=== PATIENT | female | born 2000 | race American Indian/Alaskan Native ===

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

== ENCOUNTER 2020-03-04 14:11 | Outpatient (CLI) | payer MEDICAID ==
[2020-03-04] MEDS ORDERED: LACTATED RINGERS 500 ML IV ONE (15:08)
[2020-03-04 16:09] LABS: Bacteria,Urine 1+ /HPF (Negative); Bilirubin,Urine NEG (Negative); Blood,Urine NEG (Negative); Color,Urine Amber (Yellow); Mucus,Urine 3+ /HPF
[2020-03-04 16:17] VITALS: BP 120/65
== END 2020-03-04 16:48 | disposition home or self-care (01) ==
LOC: TRG 14:11 → APU 14:12 → TRG 16:48
PROVIDERS: ATTEND Obstetrics & Gynecology
DX: O47.03 False labor before 37 completed weeks of gestation, third trimester (principal); Z3A.35 35 weeks gestation of pregnancy
CPT/HCPCS: 59025; 81001; 87086

== ENCOUNTER 2020-03-10 02:14 | Outpatient (CLI) | payer MEDICAID ==
[2020-03-10 02:36] VITALS: BP 122/70
== END 2020-03-10 03:13 | disposition home or self-care (01) ==
LOC: TRG 02:14 → APU 02:15 → TRG 03:13
PROVIDERS: ATTEND Obstetrics & Gynecology
DX: O26.893 Other specified pregnancy related conditions, third trimester (principal); M54.5 Low back pain; R10.9 Unspecified abdominal pain; Z3A.36 36 weeks gestation of pregnancy
CPT/HCPCS: 59025

== ENCOUNTER 2020-03-31 08:14 | Inpatient (IN) | payer MEDICAID ==
[2020-03-31] MEDS ORDERED: ONDANSETRON 4 MG/2 ML INJ IV PRN ×2 (08:38→18:46)
[2020-03-31] MEDS ORDERED: LIDOCAINE (2%) 20 MG/1 ML VIAL 20 ML MDV INFILTRATI ONE (08:38)
[2020-03-31] MEDS ORDERED: fentaNYL 100 MCG/2 ML INJ IV PRN (08:38)
[2020-03-31] MEDS ORDERED: NALOXONE 0.4 MG/1 ML INJ IV PRN (08:38)
[2020-03-31] MEDS ORDERED: miSOPROStol 200 MCG TAB PR PRN (08:38)
[2020-03-31] MEDS ORDERED: BUTORPHANOL 2 MG/1 ML INJ IV PRN (08:38)
[2020-03-31] MEDS ORDERED: ePHEDrine SULFATE 50 MG/1 ML INJ IV PRN (08:38)
[2020-03-31] MEDS ORDERED: TERBUTALINE 1 MG/1 ML INJ SUB-Q PRN (08:38)
[2020-03-31] MEDS ORDERED: METHYLERGONOVINE MALEATE 0.2 MG/ML VIAL IM PRN (08:38)
[2020-03-31] MEDS ORDERED: LACTATED RINGERS 1,000 ML IV SCH (08:45)
[2020-03-31] MEDS ORDERED: OXYTOCIN DRIP 30 UNITS/500 ML BAG IV SCH (09:00)
[2020-03-31 09:55] LABS: Hemoglobin 10.5 gm/dl (10.1-14.3)
[2020-03-31 10:21] LABS: Hematocrit 32.5 % (30.3-42.9); Mean Corpuscular HGB Conc 32 % (30-34); Mean Corpuscular Volume 80 fl (79-97); Platelet Count 266 K/mm3 (140-440); Red Blood Count 4.05 M/mm3 (3.65-5.03); Red Cell Distribution Width 15.5 % (13.2-15.2)
[2020-03-31] MEDS: OXYTOCIN DRIP 30 UNITS/500 ML BAG IV SCH ×6 (11:19→14:14)
--- NOTE | 2020-03-31 15:49 | History and Physical Report ---
History of Present Illness Date of examination: 03/31/20 Date of admission: 03/31/20 08:14 Chief complaint: induction of labor History of present illness: Pt is a 19 year old -[place] female MANA 04/03/20 at 39w4d presents for scheduled induction of labor for morbid obesity. She reports irregular contractions and denies vaginal bleeding or leakage of fluid. She has had care at [facility] since 18 wks complicated by morbid obesity, pyelonephritis, and h/o precipitous labor with home . She is GBS negative. Past History Past Medical History: no pertinent history Past Surgical History: no surgical history Social history: no significant social history - Obstetrical History Expected Date of Delivery: 04/03/20 Actual Gestation: 39 Week(s) 4 Day(s) : 3 Para: 2 Hx # Term Pregnancies: 1 Number of Pregnancies: 1 Spontaneous Abortions: 0 Induced : 0 Number of Living Children: 2 Medications and Allergies Allergies Allergy/AdvReac Type Severity Reaction Status Date / Time No Known Allergies Allergy Verified 03/31/20 09:09 Home Medications Medication Instructions Recorded Confirmed Last Taken Type Vit-Fe Fumar-FA [ 1 tab PO QDAY 03/31/20 03/31/20 03/31/20 History Vitamin] Active Meds: Active Medications Butorphanol Tartrate (Stadol) 2 mg IV Q2H PRN PRN Reason: Pain , Severe (7-10) Ephedrine Sulfate (Ephedrine Sulfate) 10 mg IV Q2M PRN PRN Reason: Hypotension Fentanyl (Sublimaze) 100 mcg IV Q2H PRN PRN Reason: Pain,Severe (7-10) LABOR PAIN Last Admin: 03/31/20 15:29 Dose: 100 mcg Documented by: Oxytocin/Sodium Chloride (Pitocin/Ns 30 Unit/500ml) 30 units in 500 mls @ 2 mls/hr IV TITR DAR; Protocol Last Admin: 03/31/20 14:14 Dose: 12 ml/hr, 12 mls/hr Documented by: Lactated Ringer's (Lactated Ringers) 1,000 mls @ 125 mls/hr IV DIRECT DAR Last Admin: 03/31/20 11:18 Dose: 125 mls/hr Documented by: Oxytocin/Sodium Chloride (Pitocin/Ns 30 Unit/500ml) 30 units in 500 mls @ 40 mls/hr IV TITR DAR; Protocol Stop: 03/31/20 21:29 Methylergonovine Maleate (Methergine) 0.2 mg IM ONCE PRN PRN Reason: Uterine Bleeding Mineral Oil (Mineral Oil) 30 ml PO QHS PRN PRN Reason: Constipation Misoprostol (Cytotec) 800 mcg LA ONCE PRN PRN Reason: Uterine Bleeding Naloxone HCl (Naloxone) 0.1 mg IV Q2MIN PRN PRN Reason: Res Rate </= 8 or 02 SAT < 92% Ondansetron HCl (Zofran) 4 mg IV Q8H PRN PRN Reason: Nausea And Vomiting Terbutaline Sulfate (Brethine) 0.25 mg SUB-Q ONCE PRN PRN Reason: Hyperstimulation/Hypertonicity Review of Systems All systems: negative - Vital Signs Vital signs: Vital Signs Pulse BP 100 H 136/86 03/31/20 08:55 03/31/20 08:55 Temp Pulse Resp BP Pulse Ox 99.1 F 116 H 16 149/76 98 03/31/20 08:59 03/31/20 15:41 03/31/20 08:59 03/31/20 15:28 03/31/20 15:41 - Physical Exam Breasts: Positive: deferred Abdomen: Positive: soft (gravid, obese ) Genitourinary (Female): Positive: normal external genitalia Uterus: Positive: enlarged (gravid ) Extremities: Positive: normal - Obstetrical FHR: auscultation normal Uterine Contraction Monitor Mode: External Cervical Dilatation: 10 Cervical Effacement Percentage: 100 station: +3 Uterine Contraction Pattern: Regular Uterine Tone Measurement Phase: Resting Uterine Contraction Intensity: Strong/Firm Results Result Diagrams: 03/31/20 09:20 Abnormal lab results 03/31/20 Range/Units 09: WBC 12.1 H (4.5-11.0) K/mm3 MCH 26 L (28-32) pg RDW 15.5 H (13.2-15.2) % All other labs normal. Assessment and Plan A: IUP at 39w4d Morbid Obesity GBS Negative H/o Precipitous P: Admit to labor and delivery Routine intrapartum care Closely monitor maternal and status
--- NOTE | 2020-03-31 15:52 | Procedure Note ---
OB Delivery Note - Delivery Date of Delivery: 03/31/20 Surgeon: SAMAN CHAVEZ Estimated blood loss: 500cc - Vaginal Delivery presentation: vertex Delivery position: OA Intrapartum events: precipitous labor- <3hr Delivery induction: oxytocin Delivery augmentation: pitocin Delivery monitor: external FHT, external uterine Route of delivery: Delivery placenta: spontaneous Episiotomy: none Delivery laceration: other (Midline periurethral- hemostatic without repair ) Anesthesia: none - Infant A at 1 minute: 8 at 5 minutes: 9 Gender: Female (2840g (6lb 4.1 oz) @ 1509 pm)
[2020-03-31] MEDS ORDERED: IBUPROFEN 600 MG TAB PO ONE ×2 (17:35→17:58)
[2020-03-31] MEDS ORDERED: diphenhydrAMINE 25 MG CAP PO PRN (18:46)
[2020-03-31] MEDS ORDERED: LANOLIN/ZINC/DIMETHICONE (LANSINOH) 7 GM TP PRN ×2 (18:46)
[2020-03-31] MEDS ORDERED: BENZOCAINE/MENTHOL 20/0.5% TOP SPRAY 56 GM TP PRN (18:46)
[2020-03-31] MEDS ORDERED: WITCH HAZEL/ GLYCERIN PAD TP PRN (18:46)
[2020-03-31] MEDS ORDERED: MAGNESIUM HYDROXIDE (MOM) ORAL LIQD UDC PO PRN (18:46)
[2020-03-31] MEDS ORDERED: PROMETHAZINE 25 MG TAB PO PRN (18:46)
[2020-03-31] MEDS ORDERED: HYDROcodone/ACETAMINOPHEN 5-325 MG TAB PO PRN (18:46)
[2020-03-31] MEDS ORDERED: PROMETHAZINE 25 MG RECT SUPP PR PRN (18:46)
[2020-03-31] MEDS ORDERED: MINERAL OIL 30 ML ORAL LIQD PO PRN (22:00)
[2020-03-31] MEDS: IBUPROFEN 600 MG TAB PO SCH (23:27)
[2020-03-31] MEDS: FERROUS SULFATE 325 MG TAB PO SCH (23:28)
[2020-04-01] MEDS: IBUPROFEN 600 MG TAB PO SCH (05:38)
[2020-04-01] MEDS ORDERED: DIPHtheria,PERTUSSIS(ACELL),TETANUS VACCINE/PF 0.5 ML VIAL IM ONE (06:00)
--- NOTE | 2020-04-01 08:17 | Progress Note ---
Assessment and Plan A: PPD1 s/p at term. M.O. P: Routine care with discharge anticipated at 24hrs . Subjective - Subjective Date of service: 04/01/20 Principal diagnosis: S/P at term, morbid obesity Interval history: PPD1 S/P at term. Pain well controlled. Patient resting and has no complaints at this time. Patient reports: appetite normal, voiding normally, pain well controlled, ambulating normally : doing well Objective - Vital Signs Latest vital signs: Vital Signs Temp Pulse Resp BP BP Pulse Ox 04/01/20 00:28 98.2 F 97 H 20 104/55 99 03/31/20 20:01 99.0 F 108 H 20 94/66 99 03/31/20 18:25 99.1 F 111 H 20 122/56 100 03/31/20 17:40 86 100 03/31/20 17:35 97 H 99 03/31/20 17:30 95 H 99 03/31/20 17:25 92 H 99 03/31/20 17:20 84 100 03/31/20 17:18 89 100 03/31/20 17:16 101 H 168/115 03/31/20 17:13 101 H 100 03/31/20 17:08 86 100 03/31/20 17:03 92 H 100 03/31/20 17:00 85 157/90 03/31/20 16:58 106 H 99 03/31/20 16:53 94 H 99 03/31/20 16:48 97 H 100 03/31/20 16:45 88 18 146/78 146/78 03/31/20 16:43 91 H 100 03/31/20 16:38 90 100 03/31/20 16:33 98 H 100 03/31/20 16:30 83 18 141/84 141/84 100 03/31/20 16:28 93 H 100 03/31/20 16:23 96 H 100 03/31/20 16:18 94 H 100 03/31/20 16:15 97 H 16 134/65 134/65 100 03/31/20 16:13 93 H 100 03/31/20 16:08 102 H 99 03/31/20 16:07 78 L 03/31/20 16:00 98.3 F 110 H 18 135/65 135/65 03/31/20 15:41 116 H 98 03/31/20 15:36 114 H 99 03/31/20 15:31 107 H 100 03/31/20 15:28 103 H 149/76 03/31/20 15:26 103 H 154/92 100 03/31/20 15:20 92 H 99 03/31/20 15:16 98 H 145/91 03/31/20 15:15 96 H 98 03/31/20 14:14 85 117/60 03/31/20 13:37 88 125/59 03/31/20 13:06 90 121/74 03/31/20 12:31 89 111/69 03/31/20 11:57 84 120/65 03/31/20 11:19 93 H 122/72 03/31/20 10:56 104 H 98 03/31/20 10:51 96 H 99 03/31/20 10:46 84 100 03/31/20 10:41 86 100 03/31/20 10:36 91 H 99 03/31/20 10:31 83 99 03/31/20 10:26 91 H 98 03/31/20 10:21 87 99 03/31/20 10:16 80 99 03/31/20 10:11 79 99 03/31/20 10:06 90 100 03/31/20 10:01 94 H 99 03/31/20 09:56 81 100 03/31/20 09:51 109 H 99 03/31/20 09:46 84 99 03/31/20 09:41 91 H 100 03/31/20 09:36 81 100 03/31/20 09:31 84 100 03/31/20 09:26 91 H 100 03/31/20 09:21 95 H 100 03/31/20 09:16 94 H 100 03/31/20 09:11 107 H 99 03/31/20 09:06 100 H 99 03/31/20 09:01 108 H 99 03/31/20 08:59 99.1 F 103 H 16 136/86 100 03/31/20 08:56 118 H 100 03/31/20 08:55 100 H 136/86 Intake and Output 03/31/20 04/01/20 04/01/20 23:59 07:59 15:59 Intake Total 400 200 Output Total 600 400 Balance -200 -200 Intake: Oral 400 200 Output: Urine 600 400 Void 600 400 Other: Total, Intake Amount 200 200 Total, Output Amount 600 400 Estimated Blood Loss 500 - Exam Breasts: Present: deferred Uterus: Present: normal, fundal height below umbilicus - Labs Labs: Abnormal lab results 03/31/20 Range/Units 09:20 WBC 12.1 H (4.5-11.0) K/mm3 MCH 26 L (28-32) pg RDW 15.5 H (13.2-15.2) %
--- NOTE | 2020-04-01 08:21 | Discharge Summary ---
Providers - Providers Date of Admission: 03/31/20 08:14 Date of discharge: 04/01/20 Attending physician: SAMAN CHAVEZ 03/31/20 18:46 Consult to Clock Maker [CONS] Routine Reason For Exam: assistance with , SNS Primary care physician: LILO ZAMORA Hospitalization Reason for admission: induction of labor Delivery: Episiotomy: none Laceration: other (Midline, periurethral (hemostatic w/o repair)) Other procedures: none complications: none Discharge diagnosis: IUP at term delivered baby: female Condition at discharge: Good Disposition: DC-01 TO HOME OR SELFCARE Plan - Discharge Medications Prescriptions: Ibuprofen [Motrin] 800 mg PO Q8HR PRN #30 tablet PRN Reason: Pain, Moderate (4-6) - Provider Discharge Summary Activity: no sex for 6 weeks, no heavy lifting 4 weeks, no strenuous exercise Diet: routine Instructions: routine Additional instructions: [] Smoking cessation referral if applicable(refer to patient education folder for contact #) [] Refer to [facility] Booklet Call your doctor immediately for: * Fever > 100.5 * Heavy vaginal bleeding ( >1 pad per hour) * Severe persistent headache * Shortness of breath * Reddened, hot, painful area to leg or breast * Drainage or odor from incision. * Keep incision clean and dry at all times and follow doctor's instructions regarding bathing/showering - Follow up plan Follow up: LILO ZAMORA MD [Primary Care Provider] - 05/12/20
[2020-04-01] MEDS: FERROUS SULFATE 325 MG TAB PO SCH (11:24)
[2020-04-01] MEDS ORDERED: MEASLES, MUMPS & RUBELLA 12,500 UNIT/0.5 ML VACCINE SUB-Q ONE (15:53)
[2020-04-01 17:15] VITALS: BP 115/63
== END 2020-04-01 18:24 | disposition home or self-care (01) | DRG 775 ==
LOC: LD 08:14 → OB 18:43
PROVIDERS: ADMIT Obstetrics & Gynecology; ATTEND Obstetrics & Gynecology
PROC: 10E0XZZ Delivery of Products of Conception, External Approach (ICD-10-PCS; principal; 2020-03-31)
PROC: 3E033VJ Introduction of Other Hormone into Peripheral Vein, Percutaneous Approach (ICD-10-PCS; 2020-03-31)
PROC: 3E0234Z Introduction of Serum, Toxoid and Vaccine into Muscle, Percutaneous Approach (ICD-10-PCS; 2020-04-01)
DX: O62.3 Precipitate labor (principal); Z3A.39 39 weeks gestation of pregnancy; Z37.0 Single live birth; O99.214 Obesity complicating childbirth; E66.01 Morbid (severe) obesity due to excess calories; O71.82 Other specified trauma to perineum and vulva; Z20.828 Contact with and (suspected) exposure to other viral communicable diseases; Z23 Encounter for immunization
CPT/HCPCS: 36415; 85027; 86592; 86850; 86900; 86901; G0378; J2590; J3010; J7120; U0003

== ENCOUNTER 2020-09-02 07:30 | Emergency (ER) | payer MEDICAID ==
--- NOTE | 2020-09-02 07:44 | Event Note ---
ED Screening Note Date of service: 09/02/20 Time: 07:42 ED Screening Note: Patient presents with complaints of chest pain, anxiety, and depression Denies shortness of breath Patient is 1 week states she does not have enough support at home Denies history of anxiety or depression as a child per patient Patient actively crying in triage This initial assessment/diagnostic orders/clinical plan/treatment(s) is/are subject to change based on patients health status, clinical progression and re- assessment by fellow clinical providers in the ED. Further treatment and workup at subsequent clinical providers discretion. Patient/guardian urged not to elope from the ED as their condition may be serious if not clinically assessed and managed. Initial orders include: Labs EKG Chest x-ray
[2020-09-02 08:23] LABS: Basophils # (Auto) 0.1 K/mm3 (0.0-0.1); Basophils % (Auto) 0.9 % (0.0-1.8); Eosinophils % (Auto) 0.5 % (0.0-4.3); Hematocrit 32.9 % (30.3-42.9); Hemoglobin 10.1 gm/dl (10.1-14.3); Lymphocytes # (Auto) 1.3 K/mm3 (1.2-5.4); Lymphocytes % (Auto) 13.7 % (13.4-35.0); Mean Corpuscular HGB Conc 31 % (30-34); Mean Corpuscular Volume 71 fl (79-97); Monocytes # (Auto) 0.6 K/mm3 (0.0-0.8); Monocytes % (Auto) 5.9 % (0.0-7.3); Platelet Count 409 K/mm3 (140-440); Red Blood Count 4.64 M/mm3 (3.65-5.03)
--- NOTE | 2020-09-02 08:30 | XRay Report ---
CHEST 2 VIEWS INDICATION: chest pain. COMPARISON: 11/01/2019 FINDINGS: Support devices: None. Heart: Within normal limits. Lungs/pleura: No acute air space or interstitial disease. No pneumothorax. Additional findings: None. IMPRESSION: No acute findings. Normal chest x-ray. Signer Name: Stephen Guzman Jr, MD Signed: 09/02/2020 8:26 AM Workstation Name: [id number]
[2020-09-02 08:37] LABS: Red Cell Distribution Width 21.9 % (13.2-15.2)
[2020-09-02 08:47] LABS: Alanine Aminotransferase 10 units/L (7-56); Albumin 3.6 g/dL (3.9-5); Blood Urea Nitrogen 9 mg/dL (7-17); Calcium 8.8 mg/dL (8.4-10.2); Hemolysis Index 3
[2020-09-02 08:52] LABS: BUN/Creatinine Ratio 18
--- NOTE | 2020-09-02 10:06 | Emergency Department Report ---
ED General Adult HPI - General Chief complaint: Anxiety Stated complaint: DEPRESSION, ANXIETY Time Seen by Provider: 09/02/20 07:41 Source: patient Mode of arrival: Ambulatory Limitations: No Limitations - History of Present Illness Initial comments: Patient presents with complaints of chest pain, anxiety, and depression Denies shortness of breath Patient is 1 week states she does not have enough support at home Denies history of anxiety or depression as a child per patient Patient actively crying in triage -: Gradual, week(s) - Related Data Home Medications Medication Instructions Recorded Confirmed Last Taken Vit-Fe Fumar-FA [ 1 tab PO QDAY 03/31/20 03/31/20 03/31/20 Vitamin] Previous Rx's Medication Instructions Recorded Last Taken Type Ibuprofen [Motrin] 800 mg PO Q8HR PRN #30 tablet 04/01/20 Unknown Rx busPIRone [Buspar] 15 mg PO TID PRN #30 tab 09/02/20 Unknown Rx Allergies Allergy/AdvReac Type Severity Reaction Status Date / Time No Known Allergies Allergy Verified 09/02/20 07:41 ED Review of Systems ROS: Stated complaint: DEPRESSION, ANXIETY Other details as noted in HPI Constitutional: denies: chills, fever, malaise Respiratory: denies: cough, shortness of breath Cardiovascular: denies: chest pain Gastrointestinal: denies: abdominal pain, nausea, vomiting Genitourinary: denies: urgency, dysuria, frequency, hematuria Musculoskeletal: denies: back pain Skin: denies: change in color Neurological: denies: headache ED Past Medical Hx - Past Medical History Hx Hypertension: No Hx Congestive Heart Failure: No Hx Diabetes: No Hx Deep Vein Thrombosis: No Hx Renal Disease: No Hx Sickle Cell Disease: No Hx Seizures: No Hx Asthma: No Hx COPD: No Hx HIV: No - Social History Smoking Status: Never Smoker Substance Use Type: None - Medications Home Medications: Home Medications Medication Instructions Recorded Confirmed Last Taken Type Vit-Fe Fumar-FA [ 1 tab PO QDAY 03/31/20 03/31/20 03/31/20 History Vitamin] Ibuprofen [Motrin] 800 mg PO Q8HR PRN #30 tablet 04/01/20 Unknown Rx busPIRone [Buspar] 15 mg PO TID PRN #30 tab 09/02/20 Unknown Rx ED Physical Exam - General Limitations: No Limitations General appearance: alert, in no apparent distress, obese - Head Head exam: Present: atraumatic, normocephalic - Eye Eye exam: Present: normal appearance. Absent: scleral icterus - ENT ENT exam: Present: normal exam - Neck Neck exam: Present: normal inspection - Respiratory Respiratory exam: Absent: respiratory distress - Cardiovascular Cardiovascular Exam: Present: regular rate - GI/Abdominal GI/Abdominal exam: Present: soft. Absent: tenderness - Extremities Exam Extremities exam: Present: full ROM, other (No swelling noted to upper or lower extremities bilaterally) - Back Exam Back exam: Present: full ROM - Neurological Exam Neurological exam: Present: alert, oriented X3, normal gait - Psychiatric Psychiatric exam: Present: normal affect, depressed. Absent: homicidal ideation, suicidal ideation - Skin Skin exam: Present: warm, dry, intact, normal color. Absent: rash ED Course Vital Signs 09/02/20 09/02/20 07:40 10:45 Temperature 98.9 F Pulse Rate 82 Respiratory 20 18 Rate Blood Pressure 157/93 O2 Sat by Pulse 100 Oximetry ED Medical Decision Making - Lab Data Result diagrams: 09/02/20 08:06 09/02/20 08:06 Lab Results 09/02/20 09/02/20 Range/Units 08:06 08:06 WBC 9.5 (4.5-11.0) K/mm3 RBC 4.64 (3.65-5.03) M/mm3 Hgb 10.1 (10.1-14.3) gm/dl Hct 32.9 (30.3-42.9) % MCV 71 L (79-97) fl MCH 22 L (28-32) pg MCHC 31 (30-34) % RDW 21.9 H (13.2-15.2) % Plt Count 409 (140-440) K/mm3 Lymph % (Auto) 13.7 (13.4-35.0) % [place] % (Auto) 5.9 (0.0-7.3) % Eos % (Auto) 0.5 (0.0-4.3) % Baso % (Auto) 0.9 (0.0-1.8) % Lymph # (Auto) 1.3 (1.2-5.4) K/mm3 [place] # (Auto) 0.6 (0.0-0.8) K/mm3 Eos # (Auto) 0.0 (0.0-0.4) K/mm3 Baso # (Auto) 0.1 (0.0-0.1) K/mm3 Seg Neutrophils % 79.0 H (40.0-70.0) % Seg Neutrophils # 7.6 (1.8-7.7) K/mm3 Sodium 134 L (137-145) mmol/L Potassium 4.4 (3.6-5.0) mmol/L Chloride 103.1 (98-107) mmol/L Carbon Dioxide 23 (22-30) mmol/L Anion Gap 12 mmol/L BUN 9 (7-17) mg/dL Creatinine 0.5 L (0.6-1.2) mg/dL Estimated GFR > 60 ml/min BUN/Creatinine Ratio 18 % Glucose 105 H (65-100) mg/dL Calcium 8.8 (8.4-10.2) mg/dL Total Bilirubin 0.20 (0.1-1.2) mg/dL AST 13 (5-40) units/L ALT 10 (7-56) units/L Alkaline Phosphatase 127 (35-129) units/L Troponin T < 0.010 (0.00-0.029) ng/mL Total Protein 7.3 (6.3-8.2) g/dL Albumin 3.6 L (3.9-5) g/dL Albumin/Globulin Ratio 1.0 % - EKG Data EKG shows normal: sinus rhythm Rate: normal - Radiology Data Radiology results: report reviewed CHEST 2 VIEWS INDICATION: chest pain. COMPARISON: 11/01/2019 FINDINGS: Support devices: None. Heart: Within normal limits. Lungs/pleura: No acute air space or interstitial disease. No pneumothorax. Additional findings: None. IMPRESSION: No acute findings. Normal chest x-ray. - Medical Decision Making Patient presents with complaints of chest pain, anxiety, and depression Denies shortness of breath Patient is 1 week states she does not have enough support at home Denies history of anxiety or depression as a child per patient Patient actively crying in triage Physical exam is normal. The following is the mental health evaluation by XI Kirby JASMINE NICOLE [facility] 2000 [id number] 09/02/20 13:50 - MH Bindery Supervisor's Note by ANNA CASIANO Acct Num: [id number] : 2000 Patient Age: 20 Mental Health Assessment Completed: Pt is a 20 y/o AA female who presents to the ED for a MHE. Per triage note, Pt reports having "anxiety" with chest/head pain x1 hour. 1 month . "overwhelmed". Crying. States "might be depression". Not eating/drink ing as much. Does not have enough support at home with baby. Denies any MH hx or SI/HI. During current ax, pt presents with calm mood, affect congruent with mood, and cooperative behaviors. Pts thought process is organized and able to verbalize needs clearly. Pt reports exhibiting depression and anxiety since of baby two months ago. Reports being overwhelmed with parenting three children (4 yr old, 1 yr old, and ). Pt reports a limited support system and hx of being in foster care. Report changes to sleep and appetite since delivery. Currently pt denies SI, HI, AVH, and paranoia. No self-harming behaviors reported. Denies any previous MH hx or psychiatric provider. Receives counseling weekly from Jacoblinda Morley and scheduled for an appointment today at 5:00pm. Denies alcohol or illicit drug use. Reports receiving food assistance and recently denied for Child assistance program. 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 Recommendations: Pt does not meet inpatient criteria. Pt will be referred for outpatient resources. Anna Casiano LMSW Initialized on 09/02/20 13:50 - END OF NOTE Patient is well-appearing and stable for discharge home. Patient is to follow- up with primary care within 3 days. Discussed signs and symptoms that should prompt immediate return to the emergency department in detail with patient who verbalizes understanding. Critical care attestation.: If time is entered above; I have spent that time in minutes in the direct care of this critically ill patient, excluding procedure time. ED Disposition Clinical Impression: Anxiety Disposition: DC-01 TO HOME OR SELFCARE Is pt being admited?: No Condition: Stable Instructions: Managing Anxiety, Adult, Depression Additional Instructions: Professional and Agency Contacts To help [facility](22/11) [place] Crisis Line: Suicide Prevention Line: Crisis Text Line: Text START to 219852 Emergency: 911 Outpatient COMMUNITY Behavioral Health Resources: [place]: [facility] [address] [place], [place] [address] [place]: [facility] - [facility] [address] [place] [address] [place]: [facility] - [address] [place] [address] Tuesday thru Tuesday - 8am - 5pm [place]: [facility] Address: [address], [place] [address] [place]: [facility] Address: [address] [place] [address] Tuesday thru Tuesday- 7am-2pm [facility] Address: [address] [place] [address] Tuesday thru Tuesday: 8:30AM-5PM Prescriptions: busPIRone [Buspar] 15 mg PO TID PRN #30 tab PRN Reason: anxiety Referrals: PRIMARY CARE, [Primary Care Provider] - 3-5 Days [facility] [Provider Group] - 3-5 Days
[2020-09-02] MEDS ORDERED: ACETAMINOPHEN 325 MG TAB PO ONE (10:14)
[2020-09-02 14:17] VITALS: BP 148/92
--- NOTE | 2020-09-04 17:18 | Electrocardiograph Report ---
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
== END 2020-09-02 14:16 | disposition home or self-care (01) ==
LOC: ED 07:30
DX: F41.9 Anxiety disorder, unspecified (principal); Z79.899 Other long term (current) drug therapy
CPT/HCPCS: 36415; 71046; 80053; 84484; 85025; 93005

== ENCOUNTER 2020-11-10 22:45 | Emergency (ER) | payer MEDICAID ==
[2020-11-10 23:26] VITALS: BP 156/101
== END 2020-11-11 01:00 | disposition left against medical advice (07) ==
LOC: ED 22:45
DX: R10.9 Unspecified abdominal pain (principal); Z53.21 Procedure and treatment not carried out due to patient leaving prior to being seen by health care provider